=== PATIENT | male | born 2000 | race African-American/Black ===

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

== ENCOUNTER 2021-06-26 09:08 | Emergency (ER) | payer OTHER ==
[~2021-06-26] VITALS: Ht 180.3 cm; Wt 93.2 kg
[2021-06-26 09:18] VITALS: BP 144/77
--- NOTE | 2021-06-26 20:55 | ECGEPIP ---
[facility] - ED Test Date: 2021-06-26 Pat Name: KING SHANNEN Department: Room: - Gender: Male Cw Operator: : 2000 Requested By: Codi Marrero Order Number: [id number] Reading MD: [place] Narvaez Measurements Intervals [place] Rate: 60 P: 53 PA: 192 QRS: 54 QRSD: 100 T: 20 QT: 422 QTc: 422 Interpretive Statements Normal sinus rhythm with sinus arrhythmia Early repolarization Similar to tracing done 10-04-19 Electronically Signed on 06-26-2021 20:54:50 EDT by Lake Narvaez
== END 2021-06-26 09:38 | disposition left against medical advice (07) ==
LOC: EDBD 09:08 → M ED 09:08
DX: R55 Syncope and collapse (principal)

== ENCOUNTER 2021-10-23 09:52 | Emergency (ER) | payer OTHER ==
[~2021-10-23] VITALS: Ht 182.9 cm; Wt 96.1 kg
[2021-10-23 12:20] LABS: BASO % 0.5 % (0.0-1.0); EOS # 0.3 10^3/uL (0.0-0.5); EOS % 5.7 % (0.0-3.0); HEMATOCRIT 44.8 % (42.0-52.0); HEMOGLOBIN 14.8 g/dl (13.5-17.5); LYMPH # 1.8 10^3/uL (1.5-5.0); LYMPH % 30.8 % (24.0-44.0); MEAN CORPUSCULAR HEMOGLOBIN 27.7 pg (27.0-33.0); MEAN CORPUSCULAR VOLUME 83.7 fl (80.0-96.0); NEUTROPHILS # 2.7 10^3/uL (1.5-8.5); NEUTROPHILS % 45.7 % (36.0-66.0); PLATELET COUNT, AUTOMATED 385 10^3/uL (150-450); RED BLOOD COUNT 5.35 10^6/uL (4.30-6.10); WHITE BLOOD COUNT 5.8 10^3/uL (4.0-10.0)
[2021-10-23 13:02] LABS: ALT/SGPT 41 U/L (12-78); BILIRUBIN,DIRECT 0.1 MG/DL (0.0-0.2); BILIRUBIN,TOTAL 0.5 MG/DL (0.2-1.0); BLOOD UREA NITROGEN 17 MG/DL (7-18); CALCIUM LEVEL 9.7 MG/DL (8.5-10.1); CARBON DIOXIDE LEVEL 26 MEQ/L (21-32); CHLORIDE LEVEL 106 MEQ/L (98-107); CREATININE FOR GFR 0.98 MG/DL (0.70-1.30); FREE T4 1.21 NG/DL (0.78-1.33); GLUCOSE, FASTING 87 MG/DL (70-100); LIPASE 111 U/L (73-393); POTASSIUM SERUM 4.2 MEQ/L (3.5-5.1); SODIUM LEVEL 139 MEQ/L (136-145); THYROID STIMULATING HORMONE 0.593 uIU/ML (0.463-3.98); TOTAL PROTEIN 8.1 GM/DL (6.4-8.2)
[2021-10-23] MEDS ORDERED: OMEP40CA4 PO (13:45)
[2021-10-23 14:12] VITALS: BP 134/69
== END 2021-10-23 14:13 | disposition home or self-care (01) ==
LOC: M ED 09:52
DX: K21.9 Gastro-esophageal reflux disease without esophagitis (principal); Z87.891 Personal history of nicotine dependence